=== PATIENT | male | born 1990 | race African-American/Black ===

== ENCOUNTER 2018-03-09 21:29 | Emergency (ER) | payer MEDICAID, OTHER ==
[~2018-03-09] VITALS: Ht 188 cm; Wt 86.2 kg
--- NOTE | 2018-03-09 21:30 | NUR ---
ED Nurse Note: [id number] for 5x days. AO4. NAD. VSS.
[2018-03-09 21:41] VITALS: BP 117/66
--- NOTE | 2018-03-09 21:53 | Emergency Room Report ---
History of Present Illness General Chief Complaint: Upper Respiratory Illness Source: Patient Present Illness HPI Is a 27-year-old male with no past medical history. He presents with chief complaint of short of breath and coughing. Onset for the last week. Coughing is productive of phlegm. No fever or chills. Worse with exertion. Now having chest pain because of coughing. Denies any other complaint. Denies any fever or chills. No radiation. Allergies: Coded Allergies: No Known Allergies (Unverified , 03/09/18) Patient History Past Medical History: see triage record, old chart reviewed Past Surgical History: none Pertinent Family History: none Social History: Denies: smoking Immunizations: other Reviewed Nursing Documentation: PMH: Agreed; PSxH: Agreed Nursing Documentation-PMH Past Medical History: No Stated History Review of Systems Eye: Denies: eye pain, blurred vision ENT: Denies: ear pain, nose congestion, throat swelling Respiratory: Reports: cough, shortness of breath, sputum Cardiovascular: Denies: chest pain, palpitations Gastrointestinal: Denies: abdominal pain, diarrhea, nausea, vomiting Musculoskeletal: Denies: back pain, joint pain Skin: Denies: rash Neurological: Denies: headache, numbness Endocrine: Denies: increased thirst, increased urine Hematologic/Lymphatic: Denies: easy bruising All Other Systems: negative except mentioned in HPI Physical Exam Vital Signs Date Time Temp Pulse Resp B/P (MAP) Pulse Ox O2 Delivery O2 Flow Rate FiO2 03/09/18 21:26 98.2 80 16 117/66 97 Room Air vitals normal Sp02 EP Interpretation: reviewed, normal General Appearance: well appearing, no apparent distress, alert Head: normocephalic, atraumatic Eyes: bilateral eye PERRL, bilateral eye EOMI ENT: hearing grossly normal, normal pharynx Neck: full range of motion, supple, no meningismus Respiratory: chest non-tender, rhonchi, wheezing Cardiovascular #1: regular rate, rhythm, no murmur Gastrointestinal: normal bowel sounds, non tender, no mass, no organomegaly, no bruit, non-distended Musculoskeletal: back normal, gait/station normal, normal range of motion Neurologic: alert, oriented x3 Psychiatric: mood/affect normal Skin: warm/dry Medical Decision Making Diagnostic Impression: Primary Impression: Upper respiratory infection Qualified Codes: J06.9 - Acute upper respiratory infection, unspecified Additional Impression: Atypical pneumonia ER Course Patient presents with upper respiratory infection with bronchospasm and wheezing. Better after breathing treatment. Since his been ongoing for a week , we'll put him on antibiotics. Last Vital Signs Date Time Temp Pulse Resp B/P (MAP) Pulse Ox O2 Delivery O2 Flow Rate FiO2 03/09/18 21:41 98.2 96 16 117/66 97 Room Air Status: improved Disposition: HOME, SELF-CARE Condition: Stable Scripts Azithromycin* (ZITHROMAX*) 250 Mg Tablet 250 MG ORAL DAILY, #6 TAB 0 Refills Take two tables once daily for 1 day, then one tablet once daily for 4 days. Prov: Rui Nj MD 03/09/18 Prednisone* (PREDNISONE*) 20 Mg Tablet 40 MG ORAL DAILY, #8 TAB Prov: Rui Nj MD 03/09/18 Albuterol Sulfate* (ALBUTEROL SULFATE MDI*) 8.5 Gm Hfa.aer.ad 2 PUFF INH Q4H PRN for cough/wheezing, #1 EA 0 Refills Prov: Rui Nj MD 03/09/18 Patient Instructions: Upper Respiratory Infection, Adult Additional Instructions: Follow-up with your doctor in 7 days. Return if symptom worsen. Rui Nj MD Mar 09, 2018 21:53
[2018-03-09] MEDS ORDERED: Albuterol ud Inhalation HHN ONE (22:00)
[2018-03-09 22:15] VITALS: BP 117/66
--- NOTE | 2018-03-09 22:15 | NUR ---
ED Nurse Note: Patient cleared for discharge per ERMD. AO4. NAD. VSS. Patient given prescriptions and discharge instructions; verbalized understanding. ID band removed. Patient ambulated out with all personal belongings with steady gait.
[2018-03-09] MEDS ORDERED: ALBUTEROL SULF8.5 GM INH (22:18)
[2018-03-09] MEDS ORDERED: PREDNISONE20 MG ORAL (22:18)
[2018-03-09] MEDS ORDERED: ZITHROMAX250 MG ORAL (22:18)
== END 2018-03-09 22:22 | disposition home or self-care (01) ==
LOC: EDBD 21:29 → EMR 22:20
DX: J06.9 Acute upper respiratory infection, unspecified (principal); J18.9 Pneumonia, unspecified organism
CPT/HCPCS: 94640; 94664; 99284; J7512